=== PATIENT | male | born 1940 | race Caucasian/White ===

== ENCOUNTER → 2020-09-05 01:58 | Outpatient (CLI) | payer MEDICARE, SELFPAY ==
[2020-09-05 19:04] LABS: SARS-CoV-2 RNA PCR Negative
== END ==
PROVIDERS: PCP Internal Medicine; Visit Provider Internal Medicine Gastroenterology
DX: Z01.812 Encounter for preprocedural laboratory examination (principal); Z20.822 Contact with and (suspected) exposure to COVID-19
CPT/HCPCS: C9803; U0003; U0005

== ENCOUNTER → 2020-10-15 03:10 | Outpatient (CLI) | payer MEDICARE, SELFPAY ==
[2020-10-15 19:46] LABS: SARS-CoV-2 RNA PCR Negative
== END ==
PROVIDERS: PCP Internal Medicine; Visit Provider Internal Medicine Gastroenterology
DX: Z01.812 Encounter for preprocedural laboratory examination (principal); Z20.822 Contact with and (suspected) exposure to COVID-19
CPT/HCPCS: C9803; U0003; U0005

== ENCOUNTER 2020-10-19 00:51 | Day surgery (SDC) | payer MEDICARE, SELFPAY ==
[2020-09-02 14:34] VITALS: BMI 26.4
[2020-10-14 12:01] VITALS: BMI 25.7
[2020-10-19 06:56] LABS: Glucose Point of Care 138 mg/dl (65-105)
[2020-10-19] MEDS: LACTATED RINGERS 1,000 ML 150 ML IV CONT (06:58)
[2020-10-19 07:07] VITALS: BP 154/85; PULSE 92; RESP 18; TEMP 36.1; O2SAT 97; BMI 24.3
--- NOTE | 2020-10-19 07:14 | PM.HPGS ---
History of Present Illness History of Present Illness Consent: Risks, benefits, and alternatives have been discussed and questions answered. Patient agrees to proceed with procedure. Chief complaint: epigastric pain Narrative: Ulisses Benitez is a 80 year old male who since June has had a persistent pain in the epigastric area. Along with this he has lost about 10 lb. He has been taking pantoprazole chronically. He has a history of having had Hernández's esophagus. He also has been found to be anemic suspected due to chronic blood loss PMFSH Social History Social History Smoking status: Former smoker Tobacco type: cigars Alcohol intake: former Substance use: never Substance use type: does not use Living arrangements: with family Gender identity (if verbalized by the patient): Male Spiritual care concerns: No Meds Home Medications and Allergies Home Medications Medication Instructions Recorded Confirmed Type carvedilol 12.5 mg PO BID 09/02/20 10/19/20 History clopidogrel 75 mg PO DAILY 09/02/20 10/19/20 History cyanocobalamin (vitamin B-12) 1,000 mcg SUBCUT MONTHLY 09/02/20 10/19/20 History dicyclomine 10 mg PO TID PRN 09/02/20 10/19/20 History ferrous sulfate [FeroSul] 325 mg PO DAILY 09/02/20 10/19/20 History furosemide 40 mg PO DAILY 09/02/20 10/19/20 History levothyroxine 200 mcg PO DAILY 09/02/20 10/19/20 History lisinopril 10 mg PO DAILY 09/02/20 10/19/20 History metformin 500 mg PO BID 09/02/20 10/19/20 History pantoprazole 40 mg PO DAILY 09/02/20 10/19/20 History potassium chloride [Klor-Con M10] 10 meq PO DAILY 09/02/20 10/19/20 History simvastatin 20 mg PO DAILY 09/02/20 10/19/20 History warfarin 6 mg PO DAILY 09/02/20 10/19/20 History zolpidem 5 mg PO HS PRN 09/02/20 10/19/20 History lorazepam 0.5 mg PO TID PRN 10/14/20 10/19/20 History Allergies Allergy/AdvReac Type Severity Reaction Status Date / Time No Known Allergies Allergy Verified 10/19/20 07:00 Vital Signs Vital Signs - 24 hr 10/19/20 07:07 Temperature 36.1 C L Pulse Rate 92 Respiratory Rate 18 Blood Pressure 154/85 H Pulse Oximetry 97 Exam Resp: Auscultation: clear to auscultation bilaterally Cardio: Rate: regular rate Rhythm: regular rhythm GI: GI Palp: Yes Soft to palpation and No Tenderness to palpation present (GI) Assessment and Plan Assessment and plan (1) Iron deficiency anemia: Code(s): D50.9 - Iron deficiency anemia, unspecified Status: Acute Assessment and Plan: EGD with possible biopsy or dilatation or cautery. (2) Epigastric pain: Code(s): R10.13 - Epigastric pain Status: Acute Assessment and Plan: Colonoscopy with possible biopsy or polypectomy or cautery or injection of substances.
--- NOTE | 2020-10-19 08:01 | WPDANESEPPF ---
Anes - Initial Pre Proc Eval Procedure: Operation Date: 10/19/20 08:00 Proposed Procedures p Esophagogastroduodenoscopy & Colonoscopy - Gilbert Easton MD Date/Time: 10/19/20 08:01 Surgeon: Gilbert Easton MD Pre Op Diagnosis: epigastric pain Patient Data Age: 80 Gender: M Height: 6 ft 2 in Weight: 86 kg Last Vital Signs Temp 96.9 F L 10/19/20 07:07 Pulse 92 10/19/20 07:07 Resp 18 10/19/20 07:07 BP 154/85 H 10/19/20 07:07 Pulse Ox 97 10/19/20 07:07 Allergies Allergy/AdvReac Type Severity Reaction Status Date / Time No Known Allergies Allergy Verified 10/19/20 07:00 Home Medications Medication Instructions Recorded Confirmed Type carvedilol 12.5 mg PO BID 09/02/20 10/19/20 History clopidogrel 75 mg PO DAILY 09/02/20 10/19/20 History cyanocobalamin (vitamin B-12) 1,000 mcg SUBCUT MONTHLY 09/02/20 10/19/20 History dicyclomine 10 mg PO TID PRN 09/02/20 10/19/20 History ferrous sulfate [FeroSul] 325 mg PO DAILY 09/02/20 10/19/20 History furosemide 40 mg PO DAILY 09/02/20 10/19/20 History levothyroxine 200 mcg PO DAILY 09/02/20 10/19/20 History lisinopril 10 mg PO DAILY 09/02/20 10/19/20 History metformin 500 mg PO BID 09/02/20 10/19/20 History pantoprazole 40 mg PO DAILY 09/02/20 10/19/20 History potassium chloride [Klor-Con M10] 10 meq PO DAILY 09/02/20 10/19/20 History simvastatin 20 mg PO DAILY 09/02/20 10/19/20 History warfarin 6 mg PO DAILY 09/02/20 10/19/20 History zolpidem 5 mg PO HS PRN 09/02/20 10/19/20 History lorazepam 0.5 mg PO TID PRN 10/14/20 10/19/20 History Laboratory Tests 10/19/20 06:53 POC Capillary Glucose 138 mg/dl H mg/dl (65-105) Patient hx anesthesia problems: none Family hx anesthesia problems: none [facility] Past Medical History Medical History (Updated 10/19/20 @ 08:01 by Shaka Calvo MD) Hyperlipidemia Hypertension Social History Social History Smoking status: Former smoker Tobacco type: cigars Alcohol intake: former Substance use: never Substance use type: does not use Living arrangements: with family Gender identity (if verbalized by the patient): Male Spiritual care concerns: No Anes - Eval Final PreProcedure Day of Procedure 10/19/20 08:01 Patient weight: normal Heart: irregular rhythm Lungs: clear to auscultation Airway: Mallampati scale class II Neurological: alert and oriented Last oral intake: >/= 8 hours ASA classification: III Emergent: no Anesthetic plan: proceed Anesthesia type and monitoring: general GIVS and standard monitoring Informed Consent: The patient's anesthetic plan and its attendant risks and benefits were discussed with the patient/family/POA. Questions were solicited and answers provided to the satisfaction of the patient/family/POA.
[2020-10-19 08:41] VITALS: BP 135/69; PULSE 95; RESP 18; O2SAT 95
[2020-10-19 08:51] VITALS: BP 127/79; PULSE 96; RESP 18; O2SAT 96
[2020-10-19 08:58] VITALS: BP 137/63; PULSE 96; RESP 18; O2SAT 96
--- NOTE | 2020-10-19 14:37 | SUR.PHASEII ---
1433 PATIENT CALLED THE ENDOSCOPY LAB COMPLAINING OF INTENSE ABDOMINAL PAIN FROM FROM HIS PROCEDURE EARLIER TODAY. HE SAID HE WAS UNABLE TO REACH THE DOCTOR'S OFFICE. I TOLD HIM I WOULD REACH OUT TO DR. JON AND HAVE HIM CALL HIM. [address] THE [address] JON'S SCIENCE TECHNICIANS. SHE SAID DR. JON WAS STANDING RIGHT NEXT TO HER. I GAVE HER THE PATIENT'S NAME AND CONTACT NUMBER AND SHE SAID HE WOULD CALL THE PATIENT.
--- NOTE | 2020-10-19 15:38 | SUR.PHASEII ---
1538 called patient and spoke with patient's . Inquired if Dr. Easton had contacted patient. stated they did hear from Dr. Easton. no other questions or complaints voiced.
== END 2020-10-19 09:11 | disposition home or self-care (01) ==
PROVIDERS: PCP Internal Medicine; Visit Provider Internal Medicine Gastroenterology
PROC: 0DJ08ZZ Inspection of Upper Intestinal Tract, Via Natural or Artificial Opening Endoscopic (ICD-10-PCS; CPT 43235; principal; 2020-10-19 08:00)
DX: Z12.11 Encounter for screening for malignant neoplasm of colon (principal); K57.30 Diverticulosis of large intestine without perforation or abscess without bleeding; K63.5 Polyp of colon; K64.8 Other hemorrhoids; D50.9 Iron deficiency anemia, unspecified; K22.70 Barrett's esophagus without dysplasia; K29.50 Unspecified chronic gastritis without bleeding; R63.4 Abnormal weight loss; I10 Essential (primary) hypertension; E78.5 Hyperlipidemia, unspecified; Z87.891 Personal history of nicotine dependence; Z79.02 Long term (current) use of antithrombotics/antiplatelets; Z79.84 Long term (current) use of oral hypoglycemic drugs; Z79.01 Long term (current) use of anticoagulants
CPT/HCPCS: 45385; 43239; 82948; 88305; J2704; J7120

== ENCOUNTER 2020-11-15 07:15 | Outpatient (CLI) | payer MEDICARE, SELFPAY ==
--- NOTE | ~2020-11-15 | US_ITS ---
EXAMINATION: US abdomen duplex Dibsie DATE: 11/15/2020 08:01 INDICATION: Chronic vascular disorder of intestine TECHNIQUE: Multiple grayscale and Doppler ultrasound images of the aorta, celiac axis and superior me senteric artery were obtained. COMPARISON: None FINDINGS: Proximal abdominal aorta measures 2.6 cm diameter tapering to 2.3 cm in the mid aorta. Extensive shad owing atherosclerotic plaque along the abdominal aorta. The distal aorta and region of the inferior m esenteric artery are obscured by shadowing bowel gas. Normal triphasic waveform identified in the vis ualized abdominal aorta peak systolic velocity of 64 cm/s. The celiac axis is patent with brisk systo lic upstroke and peak systolic velocity of 71 cm/s which is normal. A small focus of arterial flow on color Doppler seen positioned between the aorta and the inferior vena cava which may represent the o rigin of the superior mesenteric artery. There is superimposition of the arterial and venous waveform s seen on the spectral waveform imaging with peak systolic velocity of 30 cm/s. The more distal vesse l is not visualized. IMPRESSION: 1. Limited study due to nonvisualization of the inferior mesenteric artery and distal aorta due to sh adowing bowel gas and suboptimal visualization of the superior mesenteric artery. Could consider furt her evaluation with either CT angiogram or MR angiogram. 2. Extensive atherosclerotic calcific location of the normal caliber aorta with normal triphasic wave form. 3. No evident stenosis in the celiac axis or visualized proximal most superior mesenteric artery. Reviewed, dictated and finalized at location A. IMPRESSION: 1. Limited study due to nonvisualization of the inferior mesenteric artery and distal aorta due to shadowing bowel gas and suboptimal visualization of the sup erior mesenteric artery. Could consider further evaluation with either CT angio gram or MR angiogram. 2. Extensive atherosclerotic calcific location of the normal caliber aorta with normal triphasic waveform. 3. No evident stenosis in the celiac axis or visualized proximal most superior mesenteric artery.
== END 2020-11-15 07:16 | disposition home or self-care (01) ==
PROVIDERS: PCP Internal Medicine; Visit Provider Internal Medicine Gastroenterology
DX: K55.1 Chronic vascular disorders of intestine (principal); I70.0 Atherosclerosis of aorta
CPT/HCPCS: 93979

== ENCOUNTER 2020-11-23 06:44 | Outpatient (CLI) | payer MEDICARE, SELFPAY ==
--- NOTE | ~2020-11-23 | CT_ITS ---
EXAMINATION: CTA abdomen pelvis EXAM DATE: 11/23/2020 07:22 INDICATION: K55.1 - Chronic vascular disorders of intestine. Weight loss. Limited abdominal aortic ul trasound. TECHNIQUE: Spiral CT angiogram of the abdomen and pelvis was performed following intravenous injectio n of 100 mL Omnipaque 350. Axial, coronal and sagittal images of the abdomen and pelvis were reviewe d. Maximum intensity projection 3-D reconstructions of the arteries were created by the technologist on dedicated workstation. The dose-length product (DLP) for this examination was 567.04 mGy-cm. Th e exposure was tailored according to patient size (auto mA exposure control), and iterative reconstru ction (ASIR) was used as additional dose reduction technique. There is no prior study for comparison . FINDINGS: There are pathologically enlarged mesenteric, retroperitoneal, retrocrural lymph nodes. A r ight-sided retrocrural lymph node measures 2.1 x 1.9 cm. A left retroperitoneal lymph node measures 2 .6 x 1.6 cm. These are 2 of the larger lymph nodes identified. Probable lymphoma or metastatic diseas e. The liver, spleen, adrenal glands and pancreas are unremarkable. There are cholecystectomy clips. P ortal and splenic veins are patent. Kidneys enhance symmetrically. There is no hydronephrosis. Feel vascular there is moderate aortoiliac arterial sclerosis and some aortoiliac tortuosity, but no aneu rysm. The renal arteries, superior mesenteric and celiac arteries appear widely patent. Moderate pro statomegaly. The bladder is unremarkable. The appendix is normal. The stomach and small bowel are unremarkable. There is moderate sigmoid colo helen diverticulosis. There is no adjacent inflammatory change to suggest diverticulitis. There is exp ected amount of colonic stool. No free intraperitoneal gas. There is cardiomegaly, particularly the right atrium and ventricle. Small right, trace left pleural effusions. No basilar consolidation. Th ere are no osteoblastic or osteolytic lesions identified. IMPRESSION: 1. Mesenteric, retroperitoneal, lower thoracic lymphadenopathy likely lymphoma or metastatic disease . CT chest should be considered to evaluate possible mediastinal lymphadenopathy, could be without co ntrast. 2. Moderate aortic arteriosclerosis. No aneurysm or dissection. 3. Moderate sigmoidal diverticulosis. 4. Moderate prostatomegaly. 5. Cardiomegaly. Small right, trace left pleural effusions. I called [phone], left a message for Dr. Gilbert Easton MD on 11/23/2020 13:25 CDT. I provided my d irect number, requested call back to discuss findings in this case. Reviewed, dictated and finalized at location B. IMPRESSION: 1. Mesenteric, retroperitoneal, lower thoracic lymphadenopathy likely lymphoma or metastatic disease. CT chest should be considered to evaluate possible medi astinal lymphadenopathy, could be without contrast. 2. Moderate aortic arteriosclerosis. No aneurysm or dissection. 3. Moderate sigmoidal diverticulosis. 4. Moderate prostatomegaly. 5. Cardiomegaly. Small right, trace left pleural effusions. I called [phone], left a message for Dr. Gilbert Easton MD on 11/23/2020 13:25 CDT. I provided my direct number, requested call back to discuss findings in this case.
[2020-11-23 07:19] LABS: Estimated Glomerular Filt Rate > 60
== END 2020-11-23 06:45 | disposition home or self-care (01) ==
PROVIDERS: PCP Internal Medicine; Visit Provider Internal Medicine Gastroenterology
DX: K55.1 Chronic vascular disorders of intestine (principal); K57.30 Diverticulosis of large intestine without perforation or abscess without bleeding; N40.0 Benign prostatic hyperplasia without lower urinary tract symptoms; I51.7 Cardiomegaly; I70.0 Atherosclerosis of aorta
CPT/HCPCS: 74174; Q9967

== ENCOUNTER 2021-01-25 00:36 | Day surgery (SDC) | payer MEDICARE, SELFPAY ==
[2021-01-19 14:26] VITALS: BMI 23.9
--- NOTE | 2021-01-24 08:19 | PM.HPGS ---
History of Present Illness History of Present Illness Consent: Risks, benefits, and alternatives have been discussed and questions answered. Patient agrees to proceed with procedure. Chief complaint: epigastric pain, Narrative: Ulisses Benitez is a 81 year old male Who has had several issues for over the past few months. I saw him earlier this year with complaints of severe abdominal pain and weight loss. Subsequent endoscopy revealed a small segment of Hernández's mucosa which we had known about. He also had a polyp in the colon but no source for blood loss was identified. Again with his main symptoms being severe pain in his abdomen will schedule him for CT-A suspecting mesenteric insufficiency. That study revealed significant lymphadenopathy throughout the abdomen. He Vater was evaluated with a PET scan by Oncology and we were told that the adenopathy does not appear to be of a malignant nature. A recent barium swallow showed hang-up of a barium capsule in the distal esophagus. We have scheduled him for video endoscopy of the small bowel and will need to use endoscopy to insert to capsule into the stomach and/or duodenum due to the findings on upper GI.He states that his weight has leveled off and he is no longer losing weight. He gets relief of abdominal pain only if he takes a pain pill prescribed by his primary care provider. He does have some difficulty swallowing, mostly for pills. Review of Systems Review of Systems: All systems reviewed & are unremarkable except as noted in HPI and below PMFSH Past Medical History Medical History CAD (coronary artery disease) Diabetes Hyperlipidemia Hypertension Surgical History Surgical History H/O colonoscopy History of esophagogastroduodenoscopy (EGD) Social History Social History Smoking status: Former smoker Tobacco type: cigars Alcohol intake: former Substance use: never Substance use type: does not use Living arrangements: with family Gender identity (if verbalized by the patient): Male Spiritual care concerns: No Meds Home Medications and Allergies Home Medications Medication Instructions Recorded Confirmed Type carvedilol 12.5 mg PO BID 09/02/20 01/25/21 History clopidogrel 75 mg PO DAILY 09/02/20 01/25/21 History cyanocobalamin (vitamin B-12) 1,000 mcg SUBCUT MONTHLY 09/02/20 01/25/21 History dicyclomine 10 mg PO TID PRN 09/02/20 01/25/21 History ferrous sulfate [FeroSul] 325 mg PO DAILY 09/02/20 01/25/21 History furosemide 40 mg PO DAILY 09/02/20 01/25/21 History levothyroxine 200 mcg PO DAILY 09/02/20 01/25/21 History lisinopril 10 mg PO DAILY 09/02/20 01/25/21 History metformin 500 mg PO BID 09/02/20 01/25/21 History pantoprazole 40 mg PO DAILY 09/02/20 01/25/21 History potassium chloride [Klor-Con M10] 10 meq PO DAILY 09/02/20 01/25/21 History simvastatin 20 mg PO DAILY 09/02/20 01/25/21 History warfarin 6 mg PO DAILY 09/02/20 01/25/21 History lorazepam 0.5 mg PO TID PRN 10/14/20 01/25/21 History hydrocodone-acetaminophen 1 tablet PO QID PRN 01/19/21 01/25/21 History trazodone 50 mg PO HS 01/19/21 01/25/21 History Allergies Allergy/AdvReac Type Severity Reaction Status Date / Time No Known Allergies Allergy Verified 01/25/21 06:55 Exam Const: General: alert Orientation/consciousness: patient oriented x3 Resp: Auscultation: clear to auscultation bilaterally Cardio: Rhythm: regular rhythm GI: GI Palp: Yes Soft to palpation and No Tenderness to palpation present (GI) Neuro: General: patient oriented x3 Assessment and Plan Assessment and plan (1) Iron deficiency anemia: Code(s): D50.9 - Iron deficiency anemia, unspecified Status: Acute Assessment and Plan: EGD for placement of video capsule endoscopy of small bowel EGD with possible bio
[2021-01-25 06:51] LABS: Glucose Point of Care 155 mg/dl (65-105)
--- NOTE | 2021-01-25 06:56 | WPDANESEPPF ---
Anes - Initial Pre Proc Eval Procedure: Operation Date: 01/25/21 07:30 Proposed Procedures p Esophagogastroduodenoscopy - Gilbert Easton MD s [facility] Capsule Endoscopy - Gilbert Easton MD Date/Time: 01/25/21 06:56 Surgeon: Gilbert Easton MD Pre Op Diagnosis: epigastric pain, Patient Data Age: 81 Gender: M Height: 1.88 m Weight: 84.5 kg Allergies Allergy/AdvReac Type Severity Reaction Status Date / Time No Known Allergies Allergy Verified 01/25/21 06:55 Home Medications Medication Instructions Recorded Confirmed Type carvedilol 12.5 mg PO BID 09/02/20 01/19/21 History clopidogrel 75 mg PO DAILY 09/02/20 01/19/21 History cyanocobalamin (vitamin B-12) 1,000 mcg SUBCUT MONTHLY 09/02/20 01/19/21 History dicyclomine 10 mg PO TID PRN 09/02/20 01/19/21 History ferrous sulfate [FeroSul] 325 mg PO DAILY 09/02/20 01/19/21 History furosemide 40 mg PO DAILY 09/02/20 01/19/21 History levothyroxine 200 mcg PO DAILY 09/02/20 01/19/21 History lisinopril 10 mg PO DAILY 09/02/20 01/19/21 History metformin 500 mg PO BID 09/02/20 01/19/21 History pantoprazole 40 mg PO DAILY 09/02/20 01/19/21 History potassium chloride [Klor-Con M10] 10 meq PO DAILY 09/02/20 01/19/21 History simvastatin 20 mg PO DAILY 09/02/20 01/19/21 History warfarin 6 mg PO DAILY 09/02/20 01/19/21 History lorazepam 0.5 mg PO TID PRN 10/14/20 01/19/21 History hydrocodone-acetaminophen 1 tablet PO QID PRN 01/19/21 01/19/21 History trazodone 50 mg PO HS 01/19/21 01/19/21 History Laboratory Tests 01/25/21 06:48 POC Capillary Glucose 155 mg/dl H mg/dl (65-105) Patient hx anesthesia problems: none Family hx anesthesia problems: none PMFSH Past Medical History Medical History (Updated 01/25/21 @ 06:56 by Jose Hightower MD) CAD (coronary artery disease) Diabetes Hyperlipidemia Hypertension Surgical History Surgical History (Updated 01/25/21 @ 06:57 by Jose Hightower MD) H/O colonoscopy History of esophagogastroduodenoscopy (EGD) Social History Social History Smoking status: Former smoker Tobacco type: cigars Alcohol intake: former Substance use: never Substance use type: does not use Living arrangements: with family Gender identity (if verbalized by the patient): Male Spiritual care concerns: No Anes - Eval Final PreProcedure Day of Procedure 01/25/21 06:56 Patient weight: normal Heart: regular rate and rhythm Lungs: clear to auscultation Airway: Mallampati scale class II Neurological: alert and oriented Last oral intake: >/= 8 hours ASA classification: III Emergent: no Anesthetic plan: proceed Anesthesia type and monitoring: general GIVS and standard monitoring Informed Consent: The patient's anesthetic plan and its attendant risks and benefits were discussed with the patient/family/POA. Questions were solicited and answers provided to the satisfaction of the patient/family/POA.
[2021-01-25 07:01] VITALS: BP 142/99; PULSE 105; RESP 22; TEMP 37.1; O2SAT 96; BMI 23.5
[2021-01-25] MEDS: LACTATED RINGERS 1,000 ML 150 ML IV CONT (07:07)
[2021-01-25 07:41] LABS: INR 2.1; Prothrombin Time 22.9 Seconds (11.1-14.7)
--- NOTE | 2021-01-25 07:52 | SUR.OPER ---
Patient brought to GI Lab. Instructions for patient undergoing Capsule Endoscopy reviewed with patient. Consent form signed. Sensor array applied to patient's abdomen and connected to recorded. Patient instructed they may have clear liquids at 10:00 this AM and eat or drink at 12:00 this AM. Patient instructed to return to GI Lab at 1500 this afternoon for removal of recording device and to call [phone] or to return to the hospital if any nausea and vomiting or abdominal pain is experienced.
[2021-01-25 07:54] VITALS: BP 155/102; PULSE 103; RESP 29; O2SAT 100
[2021-01-25 08:04] VITALS: BP 143/94; PULSE 100; RESP 32; O2SAT 98
[2021-01-25 08:14] VITALS: BP 142/101; PULSE 109; RESP 36; O2SAT 96
== END 2021-01-25 08:48 | disposition home or self-care (01) ==
PROVIDERS: PCP Internal Medicine; Visit Provider Internal Medicine Gastroenterology
PROC: 0DJ08ZZ Inspection of Upper Intestinal Tract, Via Natural or Artificial Opening Endoscopic (ICD-10-PCS; CPT 43235; principal; 2021-01-25 07:30)
PROC: 0DJ07ZZ Inspection of Upper Intestinal Tract, Via Natural or Artificial Opening (ICD-10-PCS; CPT 91110; 2021-01-25 07:30)
DX: D50.9 Iron deficiency anemia, unspecified (principal); K22.70 Barrett's esophagus without dysplasia; K22.2 Esophageal obstruction; K29.40 Chronic atrophic gastritis without bleeding; I10 Essential (primary) hypertension; I25.10 Atherosclerotic heart disease of native coronary artery without angina pectoris; E11.9 Type 2 diabetes mellitus without complications; E78.5 Hyperlipidemia, unspecified; Z87.891 Personal history of nicotine dependence; Z79.02 Long term (current) use of antithrombotics/antiplatelets; Z79.01 Long term (current) use of anticoagulants
CPT/HCPCS: 43249; 91112; 36415; 82948; 85610; C1726; J2704; J7120